=== PATIENT | male | born 1950 | race Caucasian/White ===

== ENCOUNTER → 2021-09-15 00:03 | Outpatient (CLI) | payer MEDICARE, SELFPAY ==
[2021-09-15 12:26] LABS: SARS-CoV-2 RNA PCR Negative
== END ==
PROVIDERS: PCP Internal Medicine; Visit Provider Internal Medicine Gastroenterology
DX: Z01.812 Encounter for preprocedural laboratory examination (principal); Z20.822 Contact with and (suspected) exposure to COVID-19
CPT/HCPCS: C9803; U0003; U0005

== ENCOUNTER 2021-09-19 00:22 | Day surgery (SDC) | payer MEDICARE, SELFPAY ==
[2021-09-07 14:12] VITALS: BMI 29.0
--- NOTE | 2021-09-18 21:32 | PM.HPGS ---
History of Present Illness History of Present Illness Consent: Risks, benefits, and alternatives have been discussed and questions answered. Patient agrees to proceed with procedure. Chief complaint: hx of colon polyps Narrative: Anthony Monroe is a 71 year old male who has had multiple polyps (10) removed 5 years ago.Also his mother had colon cancer. Review of Systems Review of Systems: All systems reviewed & are unremarkable except as noted in HPI and below PMFSH Social History Social History Smoking packs per day: 1 Smoking cigarettes per day: 20.0 Years smoked: 50 Smoking pack-years: 50.00 Smoking status: Current every day smoker Tobacco type: cigarettes Drinks per week: 1 Substance use type: does not use Living arrangements: with family Spiritual care concerns: No Meds Home Medications and Allergies Home Medications Medication Instructions Recorded Confirmed Type No Home Medications 09/07/21 09/19/21 History Allergies Allergy/AdvReac Type Severity Reaction Status Date / Time No Known Allergies Allergy Unknown Verified 09/19/21 06:50 Exam Const: General: alert Orientation/consciousness: patient oriented x3 Resp: Auscultation: clear to auscultation bilaterally Cardio: Rhythm: regular rhythm GI: GI Palp: Yes Soft to palpation and No Tenderness to palpation present (GI) Neuro: General: patient oriented x3 Assessment and Plan Assessment and plan (1) Colon cancer screening: Code(s): Z12.11 - Encounter for screening for malignant neoplasm of colon Status: Acute Assessment and Plan: Colonoscopy with possible biopsy or polypectomy or cautery or injection of substances.
[2021-09-19 06:45] VITALS: BP 167/78; PULSE 82; RESP 18; TEMP 36.6; O2SAT 97; BMI 29.5
[2021-09-19] MEDS: LACTATED RINGERS 1,000 ML 150 ML IV CONT (07:02)
--- NOTE | 2021-09-19 07:32 | WPDANESEPPF ---
Anes - Initial Pre Proc Eval Procedure: Operation Date: 09/19/21 08:00 Proposed Procedures p Colonoscopy - Tommie Cook MD Date/Time: 09/19/21 07:32 Surgeon: Tommie Cook MD Pre Op Diagnosis: hx of colon polyps Patient Data Age: 71 Gender: M Height: 1.73 m Weight: 88 kg Last Vital Signs Temp 36.6 C 09/19/21 06:45 Pulse 82 09/19/21 06:45 Resp 18 09/19/21 06:45 BP 167/78 H 09/19/21 06:45 Pulse Ox 97 09/19/21 06:45 Allergies Allergy/AdvReac Type Severity Reaction Status Date / Time No Known Allergies Allergy Unknown Verified 09/19/21 06:50 Home Medications Medication Instructions Recorded Confirmed Type No Home Medications 09/07/21 09/19/21 History Patient hx anesthesia problems: none Family hx anesthesia problems: none Results Review: All pre-operative results and documents have been reviewed as part of the pre-operative evaluation. [facility] Social History Social History Smoking packs per day: 1 Smoking cigarettes per day: 20.0 Years smoked: 50 Smoking pack-years: 50.00 Smoking status: Current every day smoker Tobacco type: cigarettes Drinks per week: 1 Substance use type: does not use Living arrangements: with family Spiritual care concerns: No Anes - Eval Final PreProcedure Day of Procedure 09/19/21 07:32 Patient weight: overweight Heart: regular rate and rhythm Lungs: clear to auscultation and normal air movement Airway: Mallampati scale class II Neurological: alert and oriented Last oral intake: >/= 8 hours ASA classification: II Emergent: no Anesthetic plan: proceed Anesthesia type and monitoring: general GIVS Results Review: All pre-operative results and documents have been reviewed as part of the pre-operative evaluation. Informed Consent: The patient's anesthetic plan and its attendant risks and benefits were discussed with the patient/family/POA. Questions were solicited and answers provided to the satisfaction of the patient/family/POA.
[2021-09-19 08:11] VITALS: BP 103/64; PULSE 73; RESP 21; O2SAT 98
[2021-09-19 08:21] VITALS: BP 153/87; PULSE 82; RESP 19; O2SAT 99
[2021-09-19 08:31] VITALS: BP 153/95; PULSE 70; RESP 26; O2SAT 100
== END 2021-09-19 08:42 | disposition home or self-care (01) ==
PROVIDERS: PCP Internal Medicine; Visit Provider Internal Medicine Gastroenterology
PROC: 0DJD8ZZ Inspection of Lower Intestinal Tract, Via Natural or Artificial Opening Endoscopic (ICD-10-PCS; CPT 45378; principal; 2021-09-19 08:00)
DX: Z12.11 Encounter for screening for malignant neoplasm of colon (principal); D12.8 Benign neoplasm of rectum; D12.3 Benign neoplasm of transverse colon; D12.4 Benign neoplasm of descending colon; K62.1 Rectal polyp; F17.210 Nicotine dependence, cigarettes, uncomplicated; Z80.0 Family history of malignant neoplasm of digestive organs
CPT/HCPCS: 45385; 45381; 88305; C9803; J2704; J7120; U0003; U0005

== ENCOUNTER → 2023-01-22 11:46 | Outpatient (CLI) | payer MEDICARE, SELFPAY ==
--- NOTE | ~2023-01-22 | CT_ITS ---
CT Scan of the Chest without Contrast: Clinical Indication: Lung cancer screening, personal history of nicotine dependence Technique: Contiguous sections were acquired throughout the chest without intravenous contrast. Dose reduction technique was used on this scan by utilizing automated exposure control and iterative recon struction technique. The dose-length product (DLP) was 154.03 mGy-cm. Findings: There is no evidence of any significant mediastinal, hilar or axillary lymphadenopathy. Atherosclerot ic calcifications of the aorta are noted. There is no evidence of pleural or pericardial effusion. There is minimal scarring or atelectasis at the right lung base. No pulmonary nodule identified. Images through the upper abdomen reveal no abnormalities. Impression: Lung RADS 1: Negative. 12 month follow-up screening CT advised. Reviewed, dictated and finalized at location . Impression: Lung RADS 1: Negative. 12 month follow-up screening CT advised.
== END ==
PROVIDERS: PCP Internal Medicine; Visit Provider Internal Medicine
DX: Z12.2 Encounter for screening for malignant neoplasm of respiratory organs (principal); Z87.891 Personal history of nicotine dependence
CPT/HCPCS: 71271

== ENCOUNTER 2024-02-08 11:21 | Emergency (ER) | payer MEDICARE, SELFPAY ==
[2024-02-08 11:37] VITALS: BP 152/63; PULSE 56; RESP 16; TEMP 36.6; O2SAT 99
--- NOTE | 2024-02-08 12:18 | ED.EAR ---
HPI - Ear Problem General Chief complaint: Ear Stated complaint: dereased hearing both ears Time Seen by Provider: 02/08/24 12:01 Source: patient and RN notes reviewed Mode of arrival: ambulatory Limitations: no limitations History of Present Illness HPI Narrative: Patient presents today complaining of decreased hearing in both ears with left ear pain. Symptoms have been present for 3 days. He has been using some wax softening drops in the low left ear the past 3 days and taking some Tylenol. Related Data Home Medications Medication Instructions Recorded Confirmed losartan 50 mg tablet 50 mg PO DAILY 02/08/24 02/08/24 Allergies Allergy/AdvReac Type Severity Reaction Status Date / Time No Known Allergies Allergy Unknown Verified 02/08/24 11:32 Review of Systems Review of Systems: CONSTITUTIONAL: Denies body aches, fever, chills, or sweats. EYES: Denies visual changes, redness, or discharge. ENT: Denies rhinorrhea, congestion, sore throat. + muffled hearing and left ear pain CARDIOVASCULAR: Denies chest pain, palpitations, or edema. RESPIRATORY: Denies cough or dyspnea. GASTROINTESTINAL: Denies abdominal pain, nausea, vomiting, or diarrhea. GENITOURINARY: Denies dysuria or hematuria. SKIN: Denies rash, itching, or wounds. MUSCULOSKELETAL: Denies back pain, joint pain, or myalgia. NEUROLOGIC: Denies headache, numbness, tingling, or weakness. PSYCH: Denies depression or anxiety. PMFSH Social History Social History Smoking packs per day: 1 Smoking cigarettes per day: 20.0 Years smoked: 50 Smoking pack-years: 50.00 Smoking status: Current every day smoker Tobacco type: cigarettes Drinks per week: 1 Substance use type: does not use Living arrangements: with family Spiritual care concerns: No Comments At time of signature, I have reviewed and agree with nursing past medical, surgical, social and family history unless otherwise noted. Please see nursing chart for further information. There is no relevant family history pertinent to the presenting complaint Exam Narrative: GENERAL: Well-appearing, well-nourished, and in no acute distress. HEAD: Normocephalic, atraumatic. EYES: EOMI. No redness or drainage. Conjunctivae normal. ENT: Mucous membranes pink and moist. Nares clear. No rhinorrhea. Bilateral cerumen impactions. See procedure note NECK: Normal AROM. Supple. No lymphadenopathy. CHEST: No respiratory distress. EXTREMITIES: Normal range of motion. No edema. SKIN: Warm, dry, no rash. Capillary refill normal. Normal skin turgor. NEURO: No focal deficits. Alert and oriented x3. Gait steady. PSYCH: Normal affect. No signs of depression or anxiety. Course Course Level of Care: Express Care Visit Vital Signs Vital signs: Vital Signs Temperature 97.9 F 02/08/24 11:37 Pulse Rate 56 L 02/08/24 11:37 Respiratory Rate 16 02/08/24 11:37 Blood Pressure 152/63 H 02/08/24 11:37 Pulse Oximetry 99 02/08/24 11:37 Oxygen Delivery Room Air 02/08/24 11:37 Temperature 97.9 F 02/08/24 11:37 Pulse Rate 56 L 02/08/24 11:37 Respiratory Rate 16 02/08/24 11:37 Blood Pressure 152/63 H 02/08/24 11:37 Pulse Oximetry 99 02/08/24 11:37 Oxygen Delivery Room Air 02/08/24 11:37 Reviewed Procedures Ear Wax Removal Both Ears: Ear Wax Removal Date: 02/08/24 Ear Wax Removal Time: 12:20 Results: Re-examined: other (Cerumen removed from the left ear. Unsuccessful removal in the right ear) Ear Canal Exam: atraumatic (Left) Patient Tolerated Procedure: well Complications: no problems Technique: ear canal irrigated Additional Comments: Cerumen irrigated from the left ear with successful removal. TM normal. Unsuccessful removal from the right ear. Unable to visualize the TM. Medical Decision Making MDM Narrative Medical decision making vishal
== END 2024-02-08 12:29 | disposition home or self-care (01) ==
PROVIDERS: Emergency Provider Nurse Practitioner; PCP Internal Medicine
DX: H61.23 Impacted cerumen, bilateral (principal); F17.210 Nicotine dependence, cigarettes, uncomplicated; I10 Essential (primary) hypertension
CPT/HCPCS: 69209; 99212; G0463

== ENCOUNTER 2024-04-26 11:48 | Emergency (ER) | payer MEDICARE, SELFPAY ==
--- NOTE | 2024-04-26 11:50 | ED_ITS ---
HPI - Extremity Injury (Upper) General Chief Complaint: Extremity Injury, Upper Stated Complaint: left arm injury Time Seen by Provider: 04/26/24 12:31 Source: patient, RN notes reviewed and old records reviewed Mode of arrival: ambulatory Limitations: no limitations History of Present Illness HPI narrative: 74-year-old male presents to the [facility] with left arm discomfort, mid forearm. Patient states about 2 weeks ago a tree branch smacked him in the arm, was then scratch by a saw blade. States the wound just was not getting better, 4 days ago started swelling with increased pain. Raised area 2 x 1.5 cm, redness 6 x 4 cm Onset (ago): week(s) (2) Related Data Home Medications Medication Instructions Recorded Confirmed losartan 50 mg tablet 50 mg PO DAILY 02/08/24 04/26/24 Allergies Allergy/AdvReac Type Severity Reaction Status Date / Time No Known Allergies Allergy Unknown Verified 04/26/24 12:21 Review of Systems Review of Systems: All systems reviewed & are unremarkable except as noted in HPI and below Constitutional: Constitutional: Reports no additional constitutional complaints Eyes: Eyes: Reports no additional eye complaints ENT: Reports system reviewed and no additional complaints, except as documented Cardiovascular: Cardiovascular: Reports no additional cardiovascular complaints, Denies chest pain and Denies dyspnea Respiratory: Respiratory: Reports no additional respiratory complaints, Denies chest congestion, Denies cough and Denies dyspnea Gastrointestinal: Gastrointestinal: Reports no additional gastrointestinal complaints, Denies abdominal pain, Denies nausea and Denies vomiting Musculoskeletal: Musculoskeletal: Reports no additional musculoskeletal complaints Integumentary/Breasts: Skin/Breast: Reports as per HPI Neurologic: Reports system reviewed and no additional complaints, except as documented Psychiatric: Psychiatric: Reports no additional psychiatric complaints Allergic/Immunologic: Allergic/Immunologic: Reports no additional allergic/immunologic complaints [facility] Social History Social History Smoking packs per day: 1 Smoking cigarettes per day: 20.0 Years smoked: 50 Smoking pack-years: 50.00 Smoking status: Current every day smoker Tobacco type: cigarettes Drinks per week: 1 Substance use type: does not use Living arrangements: with family Spiritual care concerns: No Comments At the time of my signature, I reviewed and agree with the nursing past medical, surgical, social, and family history. There is no relevant family history pertinent to the patient complaint. Exam Const: General: cooperative, healthy appearing, comfortable, no acute distress, well developed, alert and well nourished Nutritional Appearance: well nourished Orientation/consciousness: patient oriented x3 Limitations: no limitations HENMT: Head: normal to inspection Ears: hearing grossly normal bilaterally and external ears normal Face/Nose/Sinus: Normal external nose present, normal facial exam and face symmetric Face and sinus: normal facial exam and face symmetric Eyes: General: appearance normal, both eyes and all related structures Alignment and Position: alignment normal Periorbital: periorbital findings normal Neck: Neck: normal visual inspection, full ROM, no lymphadenopathy and no m eningeal signs Chest: Chest palpation & inspection: normal inspection of the chest Resp: Effort & Inspection: normal respiratory effort and able to speak in complete sentences Cardio: Rate: regular rate Skin: General skin exam: normal color and no rashes or lesions noted Lesions: no lesions Rashes: no rashes Trauma: no lacerations or abrasions Other: Abscess noted to the forearm Neuro: General: patient oriented x3, gait normal, tone normal, moves all extremities and no meningeal signs Cognition (Neuro): normal cognition Speech: normal speech Gait exam (Neuro): Normal gait present Extrem: General: normal to inspection, full ROM, capillary refill normal and normal gait Psych: Appearance: grossly normal and well kempt Mental Status: mental status grossly normal Speech and movement: Normal speech and movement present and Clear speech present Affect: normal affect Attitude: cooperative Course Course Level of Care: Express Care Visit Vital Signs Vital signs: Vital Signs Temperature 97.8 F 04/26/24 11:59 Pulse Rate 68 04/26/24 11:59 Respiratory Rate 16 04/26/24 11:59 Blood Pressure 145/66 H 04/26/24 11:59 Pulse Oximetry 99 04/26/24 11:59 Oxygen Delivery Room Air 04/26/24 11:59 Temperature 97.8 F 04/26/24 11:59 Pulse Rate 68 04/26/24 11:59 Respiratory Rate 16 04/26/24 11:59 Blood Pressure 145/66 H 04/26/24 11:59 Pulse Oximetry 99 04/26/24 11:59 Oxygen Delivery Room Air 04/26/24 11:59 Reviewed Procedures Abscess I/D upper extremity: Date of Incision: 10/14/24 Time of Incision: 12:45 Side (if applicable): left Local Anesthetic: lidocaine 1% Amount of anesthesia used (mL): 4 Technique: incised with #15 blade Amount of fluid expressed (mL): 50 Irrigation: Yes Packing used?: none I&D Results: Pus Abcess I&D Additional Comments: Procedure explained to patient. Verbal consent obtained. Injected multiple areas with lidocaine, anesthesia achieved. Incised with 15 blade, large amounts purulent drainage noted, culture collected Irrigated wound Dressing applied MDM - Extremity Injury (Upper) MDM Narrative Medical decision making narrative: Patient sitting comfortably in exam room. Nontoxic, vitals stable. Patient presents for an abscess to his forearm Abscess opened, drained, culture collected Patient appropriate for outpatient treatment and follow-up Discharge instructions reviewed with patient, as well as provided in writing per nursing staff. The instructions also include specific and strict return/GO TO THE ER as well as f/u information. All questions have been answered, and the patient deny any further questions with discharge and discharge plan. Some parts of this dictation were generated by voice recognition software and may contain typographical and/or grammatical inaccuracies. Differential Diagnosis Differential diagnosis: Likely other (Cellulitis, abscess) Critical Care Time Critical Care Time Critical Care Time: No Discharge Plan Discharge Clinical Impression: Cellulitis and abscess of upper extremity, Vaccine for diphtheria-tetanus- pertussis, combined Patient Disposition: Home, Self-Care Condition: Stable Instructions: Antibiotic Form, Cellulitis (ED), Abscess Incision and Drainage (DC) Additional Instructions: Keep area clean and dry. Wash with warm soapy water twice daily, pat dry and change dressing. Follow-up with primary care provider this week Take the antibiotic as prescribed. while on antibiotics it is important to take a probiotic or eat a your today. This will help reduce side effects. Patient Language: Azeri Prescriptions: New clindamycin HCl 150 mg capsule 150 mg PO TID 7 Days Qty: 21 0RF Rx Instructions: TAKE WITH 300 MG clindamycin HCl 300 mg capsule 300 mg PO TID 7 Days Qty: 21 0RF Rx Instructions: TAKE WITH 150 MG No Action losartan 50 mg tablet 50 mg PO DAILY Follow-up/Referrals: Sathya,Tai Pulido MD [Primary Care Provider] - 1 Week ([facility] follow LEFT FOREARM ABSCESS BLOOD PRESSURE CHECK, 145/66) Time of Disposition: 13:06
[2024-04-26 11:59] VITALS: BP 145/66; PULSE 68; RESP 16; TEMP 36.6; O2SAT 99
[2024-04-26] MEDS: LIDOCAINE HCL 1% LOCAL INJ 2 ML AMPUL 4 ML INFILTRATE (13:02)
[2024-04-26] MEDS: TETANUS,DIPHTHERIA,AC PERTUSSIS ADULT (0.5 ML) BOOSTRIX IM (13:03)
== END 2024-04-26 13:28 | disposition home or self-care (01) ==
PROVIDERS: Emergency Provider Nurse Practitioner; PCP Internal Medicine
DX: L03.113 Cellulitis of right upper limb (principal); L02.414 Cutaneous abscess of left upper limb; Z23 Encounter for immunization; F17.210 Nicotine dependence, cigarettes, uncomplicated
CPT/HCPCS: 10060; 87070; 87075; 87205; 90471; 90715; 99213; G0463; J2003

== ENCOUNTER 2025-01-10 18:01 | Emergency (ER) | payer MEDICARE, SELFPAY ==
--- NOTE | 2025-01-10 18:03 | ED.EAR ---
HPI - Ear Problem General Stated complaint: Right Ear Irritation Time Seen by Provider: 01/10/25 18:03 Source: patient Mode of arrival: ambulatory Limitations: no limitations History of Present Illness HPI Narrative: Anthony is a 74-year-old male patient presenting to the clinic today with complaints of right ear pain/difficulty hearing. He reports this has been going on for the last 2-3 days. States he feels as though his ear is swollen shut. Denies any recent swimming. No drainage. No fevers, chills, body aches. Related Data Home Medications ?Medication ?Instructions ?Recorded ?Confirmed ?Last Taken ?Type losartan 50 mg tablet 50 mg PO DAILY 02/08/24 04/26/24 Unknown History Allergies Allergy/AdvReac Type Severity Reaction Status Date / Time No Known Allergies Allergy Unknown Verified 01/10/25 18:57 Review of Systems Review of Systems: Pertinent positives per HPI. Patient denies any fever, chills, rash, headache, visual changes, dizziness, cough, runny nose, sore throat, shortness of breath, chest pain, palpitations, nausea, vomiting, diarrhea, constipation, abdominal pain, or any urinary issues. PMFSH Social History Social History Smoking packs per day: 1 Smoking cigarettes per day: 20.0 Years smoked: 50 Smoking pack-years: 50.00 Smoking status: Current every day smoker Tobacco type: cigarettes Drinks per week: 1 Substance use type: does not use Living arrangements: with family Spiritual care concerns: No Comments At the time of my signature, I reviewed and agree with the nursing past medical, surgical, social, and family history. There is no relevant family history pertinent to the patient complaint. Exam Narrative: General: Well-developed, well nourished, in no apparent distress Head: Normocephalic, atraumatic Eyes: Pupils equally round and reactive to light bilaterally, EOM intact, sclera and conjunctive clear, no discharge, lids normal Ears: TMs intact and clear, left ear canal ceruminous, right ear canal impacted with cerumen, ear irrigation was performed successfully, mild swelling and redness to the right ear canal, tenderness to palpation over the right tragus and pulling of the pinna, no drainage, grossly hearing normal. Nose: Nares patent, no discharge, no inflammation, no sinus tenderness. Mouth: Oropharynx without lesions or masses, good dentition, MMM. Neck: Supple, trachea midline, no enlargement of anterior or posterior cervical nodes, no thyroid masses or goiter palpable. Cardio: Regular rate and rhythm, s1 and s2 normal, no murmur appreciated. Resp: Clear to auscultation bilaterally anteriorly and posteriorly, no rhonchi, rales, wheezing or rubs Course Course Emergency Course: Portions of this record may have been created with voice recognition software. Level of Care: Express Care Visit Vital Signs Vital signs: Vital Signs Temperature 36.5 C 01/10/25 18:11 Pulse Rate 76 01/10/25 18:11 Respiratory Rate 20 01/10/25 18:11 Blood Pressure 159/67 H 01/10/25 18:11 Pulse Oximetry 96 01/10/25 18:11 Oxygen Delivery Room Air 01/10/25 18:11 Temperature 36.5 C 01/10/25 18:11 Pulse Rate 76 01/10/25 18:11 Respiratory Rate 20 01/10/25 18:11 Blood Pressure 159/67 H 01/10/25 18:11 Pulse Oximetry 96 01/10/25 18:11 Oxygen Delivery Room Air 01/10/25 18:11 Vital signs reviewed Procedures Ear Wax Removal Right Ear: Ear Wax Removal Date: 01/12/25 Results: Re-examined: cerumen removed completely TM Examination: TM(s) intact, normal appearance Ear Canal Exam: other (Red with mild swelling, no drainage) Patient Tolerated Procedure: well and no complications Complications: no problems Technique: ear canal irrigated Additional Comments: Verbal consent obtained for ear irrigation. Risk and benefits explained and patient voiced understanding. Ear irrigation performed using an elephant ear and spray water bottle. Mixture of 1/2 peroxide 1/2 water used to irrigate ear canal. Cerumen impaction cleared and TM visualized without redness. Grossly hearing normal. Patient tolerated procedure well Medical Decision Making MDM Narrative Medical decision making narrative: At the time of visit patient is resting comfortably on the exam table. Patient appears to be nontoxic. Plan: I suspect patient has a cerumen impaction that was irrigated successfully. Patient also has right otitis externa. Prescription for Cortisporin ear drops was sent to the pharmacy. Supportive measures were discussed with the patient and they voiced understanding discharge instructions and agrees to treatment plan. Return precautions reviewed Differential Diagnosis Differential Diagnosis: Otitis media, otitis externa, eustachian tube dysfunction, cerumen impaction, upper respiratory infection, serous otitis Vital Signs Vital Signs: Vital Signs Temperature 36.5 C 01/10/25 18:11 Pulse Rate 76 01/10/25 18:11 Respiratory Rate 20 01/10/25 18:11 Blood Pressure 159/67 H 01/10/25 18:11 Pulse Oximetry 96 01/10/25 18:11 Oxygen Delivery Room Air 01/10/25 18:11 Temperature 36.5 C 01/10/25 18:11 Pulse Rate 76 01/10/25 18:11 Respiratory Rate 20 01/10/25 18:11 Blood Pressure 159/67 H 01/10/25 18:11 Pulse Oximetry 96 01/10/25 18:11 Oxygen Delivery Room Air 01/10/25 18:11 Discharge Plan Discharge Clinical Impression: Impacted cerumen of right ear Otitis externa Qualifiers: Otitis externa type: diffuse Chronicity: acute Laterality: right Qualified Code(s): H60.311 - Diffuse otitis externa, right ear Patient Disposition: Home Condition: Stable Instructions: Antibiotic Form, Swimmer's Ear (ED) Additional Instructions: Ear irrigation was performed in the clinic today Take any prescribed medications only as directed-Cortisporin Tylenol/motrin as needed for pain May use heating pad to alleviate pain If you get recurrent ear infections it may be warranted to follow up with ENT. Follow up with your PCP in 5-7 days if symptoms persist. Patient Language: Turkmen Prescriptions: New [id number] 3.5-10,000-1 mg/mL-unit/mL-% drops,suspension 4 drp RIGHT EAR Q8H 7 Days Qty: 10 0RF No Action clindamycin HCl 150 mg capsule 150 mg PO TID 7 Days Qty: 21 0RF Rx Instructions: TAKE WITH 300 MG clindamycin HCl 300 mg capsule 300 mg PO TID 7 Days Qty: 21 0RF Rx Instructions: TAKE WITH 150 MG losartan 50 mg tablet 50 mg PO DAILY Follow-up/Referrals: Sathya,Tai Pulido MD [Primary Care Provider] - Time of Disposition: 18:49 Quality NIHSS Nursing Documentation ED NIHSS nursing documentation: reviewed/agree
[2025-01-10 18:11] VITALS: BP 159/67; PULSE 76; RESP 20; TEMP 36.5; O2SAT 96
[2025-01-10] MEDS: HYDROGEN PEROXIDE 3% SOLN(*SP) 473 ML BOTTLE 30 ML IRRIGATION (19:00)
== END 2025-01-10 19:03 | disposition home or self-care (01) ==
PROVIDERS: Emergency Provider Nurse Practitioner Family; PCP Internal Medicine
DX: H61.21 Impacted cerumen, right ear (principal); H60.311 Diffuse otitis externa, right ear; F17.210 Nicotine dependence, cigarettes, uncomplicated
CPT/HCPCS: 69209; 99213; G0463

== ENCOUNTER 2025-06-01 10:41 | Outpatient (CLI) | payer MEDICARE, SELFPAY ==
--- NOTE | ~2025-06-01 | MR_ITS ---
EXAM/PROCEDURE: MR lumbar spine wo con HISTORY: spinal stenosis lumbar region COMPARISON: None available. TECHNIQUE: Multiplanar noncontrast enhanced lumbar spine MRI performed. FINDINGS: Diffuse degenerative changes throughout the lumbar spine involving disc spaces and posterior elements. Hyperintense T2-weighted endplate changes at several levels noted. Nonexpansile hyperintense T2-weightedr 1.5 x 1.1 cm lesion in the L3 vertebral body is heterogeneously isointense on T1-weighted sequences. Chronic anterior wedge deformity of T12 and L1. The conus tapers normally at the level of L1. Level specific findings as follows: Sagittal images of T11-T12 indicate moderate to severe posterior spondylosis with at least borderline spinal canal stenosis. No axial images at this level however are provided. T12-L1: Mild degenerative change. Mild bilateral neural foraminal narrowing. L1-2: Moderate degenerative disc and facet changes with mild stenosis in the lateral recesses but no stenosis in the spinal canal. No discrete disc protrusion. Moderately severe bilateral neural foraminal narrowing. L2-3: Severe desiccation and disc space narrowing with moderately severe posterior spondylosis and moderate to severe hyperostosis of the facet joints with thickening of ligamentum flavum resulting in borderline spinal canal stenosis. No discrete disc protrusion. Moderately severe bilateral neural fora ruperto narrowing. L3-4: Moderate to severe degenerative changes in the posterior elements with moderately severe posterior disc bulging and spondylosis resulting in mild stenosis in the lateral recesses. No discrete disc protrusion. Mild to moderate bilateral neural foraminal narrowing right worse than left. L4-5: Severe degenerative disc and facet changes resulting in severe spinal canal stenosis. Disc bulging appears to result in protrusion/extrusion of disc extending caudally along the right para midline superior endplate of L5 as seen on image 8 series 3, sagittal sequences and image 25 series 5 series 7 the axial images. Moderately severe bilateral neural foraminal narrowing. L5-S1: 3 to 4 mm of grade 1 anterolisthesis L5 on S1 associated with facet subluxation. Severe hyperostosis of the facet joints with stenosis in the lateral recesses but no spinal canal stenosis or discrete disc protrusion. Moderately severe bilateral neural foraminal narrowing. IMPRESSION: 1. Advanced degenerative changes involving both the disc spaces and uncovertebral joints with severe spinal canal stenosis and disc extrusion at L4- 5 as. See level specific findings detailed above. 2. Modic type I endplate changes at several levels. 3. 1.5 cm probable atypical hemangioma in the L3 vertebral body. If patient has no known history of malignancy, this can be followed up with MRI in 6 months. 4. Incidental note of advanced degenerative changes at T11-T12, incompletely characterized on this lumbar spine study. Reviewed, dictated and finalized at location A. CHIEF IMPRESSION: 1. Advanced degenerative changes involving both the disc spaces and uncovertebr al joints with severe spinal canal stenosis and disc extrusion at L4-5 as. See level specific findings detailed above. 2. Modic type I endplate changes at several levels. 3. 1.5 cm probable atypical hemangioma in the L3 vertebral body. If patient has no known history of malignancy, this can be followed up with MRI in 6 months. 4. Incidental note of advanced degenerative changes at T11-T12, incompletely ch aracterized on this lumbar spine study.
== END 2025-06-01 10:42 | disposition home or self-care (01) ==
LOC: MICIMG 10:42
PROVIDERS: PCP Internal Medicine; Visit Provider Internal Medicine
DX: M48.062 Spinal stenosis, lumbar region with neurogenic claudication (principal); M51.369 Other intervertebral disc degeneration, lumbar region without mention of lumbar back pain or lower extremity pain; M48.061 Spinal stenosis, lumbar region without neurogenic claudication; M51.26 Other intervertebral disc displacement, lumbar region; M51.360 Other intervertebral disc degeneration, lumbar region with discogenic back pain only; M43.17 Spondylolisthesis, lumbosacral region; M85.88 Other specified disorders of bone density and structure, other site; D18.09 Hemangioma of other sites; M47.814 Spondylosis without myelopathy or radiculopathy, thoracic region
CPT/HCPCS: 72148

== ENCOUNTER 2025-06-21 12:49 | Outpatient (CLI) | payer MEDICARE, SELFPAY ==
--- NOTE | ~2025-06-21 | CT_ITS ---
EXAMINATION:CT lung screening DATE: 06/21/2025 13:16 INDICATION: Screening TECHNIQUE: Computed tomography (CT) of the chest was performed without intravenous contrast. The dose-length product (DLP) was 197.29 mGy-cm. COMPARISON: January 22, 2023 FINDINGS: Mild bibasilar atelectatic appearing changes with some air bronchograms present, as well as nodular foci such as in the left lung base image 92 series 4, where a 1.1 cm nodular focus is present. Mid and upper lung gomez are clear. Heart and great vessels stable. Central large airways patent. Diffuse degenerative changes throughout the bones which otherwise appear intact. No acute process seen in the visualized upper abdomen or extrathoracic soft tissues. IMPRESSION: Bibasilar atelectatic and nodular foci with some air bronchograms suggesting possible aspiration or previous pneumonia. The nodules are likely benign however they are new and should be reevaluated in 6 months or sooner if clinically appropriate with follow-up low-dose lung cancer screening Lung RADS 3 IMPRESSION: 1. Reviewed, dictated and finalized at location A. AOPERATIVE NEURO TECH IMPRESSION: Bibasilar atelectatic and nodular foci with some air bronchograms s uggesting possible aspiration or previous pneumonia. The nodules are likely kendy ign however they are new and should be reevaluated in 6 months or sooner if cli nically appropriate with follow-up low-dose lung cancer screening Lung RADS 3 IMPRESSION: 1.
== END 2025-06-21 12:50 | disposition home or self-care (01) ==
LOC: MICIMG 12:50
PROVIDERS: PCP Internal Medicine; Visit Provider Internal Medicine
DX: Z12.2 Encounter for screening for malignant neoplasm of respiratory organs (principal); Z87.891 Personal history of nicotine dependence
CPT/HCPCS: 71271